=== PATIENT | female | born 1955 | race Caucasian/White ===

== ENCOUNTER → 2019-01-18 | Day surgery (SDC) | payer OTHER ==
[~2019-01-18] MED LIST: AMLODIPINE-OLM1 EAC2 PO; ANTIVERT25 MG PO; BONIVA150 MG PO; NORCO 5-325 TA1 EACH PO; VAGIFEM10 MCG VAG; VITAMIN D5000 UNIT PO
--- NOTE | ~2019-01-18 | OP ---
[address] [address] OPERATIVE REPORT Name: ARNAUD SANTA Room: [facility]#: [id number] Admission: 01/18/19 Attend Phys: Darnell Romero, Discharge: Date of : 53 Report #: [id number] THIS REPORT FOR: //name// CC: Darnell Miller DICTATED BY: Bandar Guevara DO DATE OF SERVICE: 01/18/2019 PREOPERATIVE DIAGNOSIS: Right shoulder pain with full thickness rotator cuff tear noted on MRI. POSTOPERATIVE DIAGNOSES: Right shoulder long head biceps tendinitis with superior labral fraying, large full thickness rotator cuff tear, subacromial bursitis. PROCEDURE: Right shoulder arthroscopy with biceps tenotomy, significant subacromial decompression, arthroscopic rotator cuff repair utilizing [employer] SpeedBridge fixation system with two 4.75 mm SwiveLocks for the medial row and two 5.5 mm SwiveLocks for the lateral row and 2 FiberTape sutures. SURGEON: Darnell Romero DO RECOVERY MANAGER: Bandar Guevara DO ANESTHESIA: General. ANTIBIOTICS: 2 g Ancef IV preoperatively. ESTIMATED BLOOD LOSS: Minimal, less than 5 mL. SPECIMENS: None. DRAINS: None. COMPLICATIONS: None. DISPOSITION: Stable to PACU and will be discharged to home from PACU. INDICATIONS FOR PROCEDURE: The patient is a pleasant 63-year-old female who was seen in the Orthopedic Clinic with complaints of right shoulder pain. On exam, she was found to have evidence of a possible rotator cuff tear, was sent for MRI, which confirmed full thickness rotator cuff tear. Recommendation was made for right shoulder arthroscopy. Risks, benefits, complications, indications and alternatives were discussed and the patient [place] [address] OPERATIVE REPORT Name: ARNAUD SANTA [id number] Admission: 01/18/19 Attend Phys: Darnell Romero, Discharge: Date of : 53 Report #: [id number] today. DESCRIPTION OF PROCEDURE: The patient was seen in preoperative holding area. Correct operative site, right shoulder was initialed. The patient was taken back to the operating suite, placed in supine position on the T-max operating table, given benefit of general anesthetic, was then placed in a standard beach chair positioning with her head and upper body elevated nearly 60-75 degrees. A well-padded face mask was applied to her hand and all bony prominences were well padded. Right shoulder was prepped and draped in typical fashion. Surgery began with a timeout identifying correct patient, correct procedure, correct operative site, preoperative antibiotics and correct performing surgeon. Next, standard posterior viewing portal was established in a normal fashion, incised the skin with a #11 blade scalpel roughly 1 cm in length. Blunt camera trocar was introduced into the right shoulder glenohumeral joint followed by the arthroscopic camera. A thorough diagnostic shoulder arthroscopy was performed identifying the previously mentioned findings in the postoperative diagnoses. There was significant biceps tendinitis and fraying noted right at the insertion at the superior labrum as well as surrounding superior labral fraying. There was evidence of a large full thickness rotator cuff tear upon inspection. Next, an anterior working portal was established under direct visualization using a spinal needle technique in the normal fashion. Biceps tenotomy was performed utilizing arthroscopic scissors. Debridement of the labrum and biceps stump and biceps tendon was performed utilizing a 4.0 arthroscopic shaver. Undersurface of the cuff was debrided utilizing the 4.0 arthroscopic shaver. Next, our viewing portal was switched to a subacromial position from the posterior aspect in the normal fashion. Next, a standard working lateral portal was established under direct visualization using spinal needle technique in the normal fashion roughly 2 cm off the lateral acromial edge in the mid acromion region. Next, a thorough subacromial decompression was performed utilizing a combination of 4.0 arthroscopic shaver and radiofrequency ablator. Next, the large full thickness rotator cuff tear was visualized and was mobilized utilizing the radiofrequency ablator. The footprint was debrided down to a good bleeding bony surface utilizing the high speed bur function on the arthroscopic shaver. We performed significant subacromial decompression and debridement of any surrounding tissue around our insertion and repair site of our rotator cuff. We elected to proceed with arthroscopic repair of rotator cuff tendon tear. We utilized the SpeedBridge fixation kit from [employer], utilized two 4.75 mm SwiveLocks for medial row anchors punched with a slightly smaller punch due to poor bone quality and two 5.5 mm SwiveLocks for lateral row again due to suspected poor bone quality. The 2 medial row anchors were loaded with the standard TigerTape and FiberTape. After passing these 2 medial row anchors in normal fashion, the TigerTape and FiberTape were passed through the rotator cuff tendon in the normal fashion utilizing the [employer] suture passer, one passed more in the anterior and one in the more posterior direction. Next, the suture ends were cut providing 4 strands in the typical fashion and [place] [address] OPERATIVE REPORT Name: ARNAUD SANTA Room: [facility]#: [id number] Admission: 01/18/19 Attend Phys: Darnell Romero, Discharge: Date of : 53 Report #: [id number] placed each with 1 suture limb from our posterior medial anchor and 1 from our anterior medial anchor effectively completing our SpeedBridge fixation. The sutures were tensioned in the normal fashion. The lateral anchors were placed in the normal fashion and we had appropriate tensioning, appropriate coverage of our rotator cuff footprint and appropriate repair. The remaining suture tails were cut utilizing the arthroscopic suture cutters. Final images were taken of our arthroscopic rotator cuff repair again noting great repair with good coverage of our footprint and good compression of our rotator cuff tendon down to bone. All arthroscopic tools were removed. Arthroscopic fluid was exsanguinated. Portal incisions were closed in a simple interrupted fashion with 5-0 nylon suture. Standard dressings were applied consisting of Xeroform, 4 x 4's, ABDs and Medipore tape. The patient was placed in a SlingShot shoulder immobilizer, was weaned from general anesthesia, transferred in stable condition to the PACU. All sponge and needle counts were correct x 2. By: [id number] Romero, /nt
[2019-01-18 06:58] LABS: HEMATOCRIT 41.4 % (37.0-47.0); MCH 30.3 pg (26.0-34.0); MCHC 33.7 g/dL (28.0-37.0); MCV 89.8 fL (80.0-100.0); MPV 7.9 fl. (7.2-11.1); RBC 4.61 mil/uL (4.20-5.00); RDW-CV 13.6 % (10.5-14.5); WBC 6.6 thou/uL (4.0-11.0)
[2019-01-18 07:07] LABS: CALCIUM 9.2 mg/dL (8.5-10.1); CREATININE 0.8 mg/dL (0.6-1.3); POTASSIUM 3.7 mmol/L (3.5-5.1)
[2019-01-18 07:11] LABS: ALBUMIN 4.1 g/dL (3.4-5.0); TOTAL BILIRUBIN 0.3 mg/dL (<0.1-1.0); TOTAL PROTEIN 7.9 g/dL (6.4-8.2)
--- NOTE | 2019-01-18 18:28 | EKG ---
[place] [address] ELECTROCARDIOGRAM REPORT Name: ARNAUD SANTA Room: [facility]#: [id number] Admission: 01/18/19 Attend Phys: Darnell Romero, Discharge: Date of : 53 Report #: [id number] THIS REPORT FOR: //name// [facility] Test Date: 2019-01-18 Test Time: 07:42:44 Pat Name: ARNAUD SANTA Department: Room: Gender: F [employer]: : [id number] Requested By: Darnell Romero Order Number: [id number] Anjel MD: Felipe Tovar Measurements Intervals [place] Rate: 62 P: 47 TN: 204 QRS: -7 QRSD: 92 T: 23 QT: 421 QTc: 428 Interpretive Statements Sinus rhythm Left ventricular hypertrophy No previous ECG available for comparison Electronically Signed On 01-18-2019 18:27:51 [employer] HEL[employer] by Felipe Tovar [email or web address] <ELECTRONICALLY SIGNED> By: Felipe Tovar MD, [facility] 01/18/19 1827 0742 0742 Felipe Tovar MD, FACC /EPI
== END | disposition home or self-care (01) ==
LOC: M.SUR 06:19
PROVIDERS: Orthopaedic Surgery
DX: M75.121 Complete rotator cuff tear or rupture of right shoulder, not specified as traumatic (principal); M75.21 Bicipital tendinitis, right shoulder; M75.51 Bursitis of right shoulder; Z88.0 Allergy status to penicillin; Z88.8 Allergy status to other drugs, medicaments and biological substances; Z79.899 Other long term (current) drug therapy